=== PATIENT | female | born 1985 | race African-American/Black ===

== ENCOUNTER 2017-09-19 07:59 | Emergency (ER) | payer OTHER, SELFPAY ==
[2017-09-19 08:25] LABS: #Lymphocytes 1.4 thou/uL (1.20-3.40); #Monocytes 0.3 thou/uL (0.11-0.59); #Neutrophils 4.9 thou/uL (1.40-6.50); %Basophils 0.5 % (0.0-1.0); %Eosinophils 0.6 % (0.0-10.0); %Lymphocytes 20.9 % (21.0-51.0); %Monocytes 4.8 % (0.0-10.0); Hematocrit 34.3 % (36.0-47.0); Mean Platelet Volume 8.4 fL (7.4-10.4); Red Blood Cell (RBC) Count 3.92 mill/uL (4.20-5.40); White Blood Cell (WBC) Count 6.7 thou/uL (4.8-10.8)
[2017-09-19 08:48] LABS: ALT (SGPT) 29 U/L (8-55); AST (SGOT) 22 U/L (5-34); Alkaline Phosphatase 167 U/L (40-150); Anion Gap 10 mmol/L (10-20); BUN (Urea Nitrogen) 7 mg/dL (7.0-18.7); Bilirubin, Total 0.4 mg/dL (0.2-1.2); Calc. Creatinine Clearance 0 mL/min (70-130); Calcium 9.1 mg/dL (7.8-10.44); Carbon Dioxide 24 mmol/L (22-29); Chloride 106 mmol/L (98-107); Estimated GFR-MDRD Greater than 90; Globulin 3.8 g/dL (2.4-3.5); Protein, Total 7.7 g/dL (6.0-8.3)
[2017-09-19] MEDS ORDERED: levETIRAcetam In NaCl (Iso-Os) 1,500 MG in Premix Bag 1 BAG IVPB SCH ×2 (09:15)
--- NOTE | 2017-09-19 10:04 | CT ---
NONCONTRAST HEAD CT: History: Fall, seizure. Comparison: None. Technique: Noncontrast head CT is performed from skull base to skull vertex. FINDINGS: Small hematoma along the posterior left scalp region, near the vertex. No parenchymal hemorrhage. No extraaxial hematoma. No midline shift. Basilar cisterns are patent. Brain volume, age appropriate. Co rtical denton white matter differentiation is preserved. Ventricles are sulci are patent and symmetric. Adequate aeration of the sinuses and mastoid air cells. Calvarium is intact. IMPRESSION: 1. No intracranial post-traumatic sequellae. 2. Small posterior left scalp hematoma. POS: [facility]
== END 2017-09-19 11:06 | disposition home or self-care (01) ==
LOC: ERS 07:59
DX: G40.909 Epilepsy, unspecified, not intractable, without status epilepticus (principal); E11.9 Type 2 diabetes mellitus without complications; F17.210 Nicotine dependence, cigarettes, uncomplicated; Z79.84 Long term (current) use of oral hypoglycemic drugs; Z79.899 Other long term (current) drug therapy
CPT/HCPCS: 36415; 70450; 80053; 80185; 84146; 85025; 96365; J1953

== ENCOUNTER 2017-11-30 10:03 | Outpatient (CLI) | payer OTHER | END 2017-11-30 10:04 | disposition home or self-care (01) | LOC: BICULT 10:03 | PROVIDERS: ATTEND Family Medicine | DX: R10.32 Left lower quadrant pain (principal); R19.04 Left lower quadrant abdominal swelling, mass and lump; D25.9 Leiomyoma of uterus, unspecified | CPT/HCPCS: 76856; 93976 ==

== ENCOUNTER 2017-12-13 08:27 | Outpatient (CLI) | payer OTHER ==
[2017-12-13] MEDS ORDERED: ISOVUE-370 76%-LOCM 1 ML ONE (11:37)
== END 2017-12-13 08:28 | disposition home or self-care (01) ==
LOC: BICCT 08:27
PROVIDERS: ATTEND Family Medicine
DX: R19.04 Left lower quadrant abdominal swelling, mass and lump (principal); L98.9 Disorder of the skin and subcutaneous tissue, unspecified
CPT/HCPCS: 74177

== ENCOUNTER 2017-12-18 10:59 | Emergency (ER) | payer OTHER ==
[2017-12-18 11:53] LABS: Hemoglobin 11.3 g/dL (12.0-16.0); Mean Corpuscular HGB CONC 31.5 g/dL (32.0-36.0); Mean Corpuscular Hemoglobin 27.8 pg (27.0-31.0); Mean Corpuscular Volume 88.5 fl (81.0-99.0); Mean Platelet Volume 8.5 fL (7.4-10.4); Platelet Count 282 thou/uL (130-400); RBC Distribution Width 16.5 % (11.5-14.5); Red Blood Cell (RBC) Count 4.07 mill/uL (4.20-5.40); White Blood Cell (WBC) Count 3.9 thou/uL (4.8-10.8)
[2017-12-18 12:11] LABS: ALT (SGPT) 31 U/L (8-55); AST (SGOT) 23 U/L (5-34); Alkaline Phosphatase 159 U/L (40-150); Anion Gap 11 mmol/L (10-20); BUN (Urea Nitrogen) 7 mg/dL (7.0-18.7); Bilirubin, Total Less than 0.2 mg/dL (0.2-1.2); Calc. Creatinine Clearance 0 mL/min (70-130); Calcium 9.5 mg/dL (7.8-10.44); Carbon Dioxide 25 mmol/L (22-29); Chloride 105 mmol/L (98-107); Estimated GFR-MDRD Greater than 90; Globulin 3.7 g/dL (2.4-3.5); Glucose 119 mg/dL (70-105); Potassium 4.3 mmol/L (3.5-5.1); Protein, Total 7.7 g/dL (6.0-8.3); Sodium 137 mmol/L (136-145)
[2017-12-18 12:14] LABS: Anisocytosis SLIGHT = 6-15 cells (100X) (0-5/hpf); Band 1 % (5-11); Hypochromia SLIGHT = 6-15 cells (100X) (0-5/hpf); Lymphocytes 50 % (21-51); MDiff Complete? YES; Monocytes 5 % (0-10); Neutrophil 44 % (42-75); PLT Morphology Comment Appears Adequate
== END 2017-12-18 13:09 | disposition home or self-care (01) ==
LOC: ERS 10:59
DX: G40.909 Epilepsy, unspecified, not intractable, without status epilepticus (principal); E11.9 Type 2 diabetes mellitus without complications; F17.210 Nicotine dependence, cigarettes, uncomplicated; Z79.84 Long term (current) use of oral hypoglycemic drugs; Z79.899 Other long term (current) drug therapy
CPT/HCPCS: 36415; 80053; 80177; 80185; 84146; 85025; 99406

== ENCOUNTER 2018-01-30 08:32 | Outpatient (CLI) | payer OTHER ==
[~2018-01-30 08:32] MED LIST: Gadobenate Dimeglumine 529 MG/1 ML (20ML VIAL) ONE
--- NOTE | 2018-01-30 11:20 | MRI ---
MRI OF THE PELVIS WITHOUT AND WITH CONTRAST: Comparison: None. History: Endometriosis of the ovary. Palpable mass in the left lower quadrant of the abdominal wall. Technique: Multiplanar, multisequence MRI images were obtained of the pelvis without and with IV cont rast. FINDINGS: The uterus is normal in size. There is a fibroid along the right aspect of the uterus measuring 2.1 c m in greatest dimension. The junctional zone of the uterus is normal in thickness. The right ovary contains numerous small follicles. The left ovary also contains follicles. The domina nt follicle seen in the left ovary measuring 2.1 cm in greatest dimension. There is a small amount of free fluid in the pelvis which is likely physiologic. No suspicious pelvis mass is seen. None of the cystic structures in the pelvis demonstrates T2 shading which is often seen with endometriomas. In the abdominal ramsey of the left lower quadrant of the abdomen, there is a 3.5 cm mass. This demons trates low T1 and T2 signal with a very low ring around the mass which could represent hemosiderin de position. This mass is avidly enhancing. The posterior aspect of this mass touches the fascia overlyi ng the inferior aspect of the left rectus abdominus musculature. There is stranding change surroundin g this mass. No marrow signal abnormality is present. No pelvic adenopathy is appreciated. IMPRESSION: 1. There is a mass in the left lower quadrant of the abdomen which is nonspecific. This could represe nt an endometrioma. Alternatively, this could represent fibromatosis/implantation of a fibroid in a s ubcutaneous location if the patient has had a history of prior caesarian section or gynecologic surge ry. 2. Uterine fibroid. POS: [facility]
== END 2018-01-30 08:33 | disposition home or self-care (01) ==
LOC: MRI 08:32
PROVIDERS: ATTEND Obstetrics & Gynecology
DX: N80.1 Endometriosis of ovary (principal); R10.2 Pelvic and perineal pain; L90.5 Scar conditions and fibrosis of skin; R19.04 Left lower quadrant abdominal swelling, mass and lump; D25.9 Leiomyoma of uterus, unspecified
CPT/HCPCS: 72197; A9579

== ENCOUNTER 2018-02-01 12:24 | Emergency (ER) | payer OTHER ==
[2018-02-01 13:11] LABS: Hemoglobin 9.8 g/dL (12.0-16.0); Mean Corpuscular HGB CONC 31.4 g/dL (32.0-36.0); Mean Corpuscular Hemoglobin 27.6 pg (27.0-31.0); Mean Corpuscular Volume 87.8 fl (81.0-99.0); Platelet Count 262 thou/uL (130-400); RBC Distribution Width 14.8 % (11.5-14.5); Red Blood Cell (RBC) Count 3.57 mill/uL (4.20-5.40); White Blood Cell (WBC) Count 3.6 thou/uL (4.8-10.8)
[2018-02-01 13:41] LABS: ALT (SGPT) 13 U/L (8-55); AST (SGOT) 16 U/L (5-34); Albumin 3.9 g/dL (3.5-5.0); Alkaline Phosphatase 152 U/L (40-150); Anion Gap 12 mmol/L (10-20); BUN (Urea Nitrogen) 6 mg/dL (7.0-18.7); Bilirubin, Total 0.2 mg/dL (0.2-1.2); Calc. Creatinine Clearance 0 mL/min (70-130); Calcium 8.9 mg/dL (7.8-10.44); Carbon Dioxide 22 mmol/L (22-29); Chloride 104 mmol/L (98-107); Dilantin 7.6 ug/mL (10.0-20.0); Estimated GFR-MDRD Greater than 90; Globulin 3.3 g/dL (2.4-3.5); Glucose 83 mg/dL (70-105); Potassium 4.1 mmol/L (3.5-5.1); Protein, Total 7.2 g/dL (6.0-8.3); Sodium 134 mmol/L (136-145)
[2018-02-01 13:42] LABS: Bilirubin Small (Negative); Blood, Urine Negative (Negative); Clarity CLOUDY (Clear); Glucose, Urine (Dipstick) Negative (Negative); Leukocyte Moderate (Negative); Nitrite Negative (Negative); Protein, Urine (Dipstick) Negative (Neg-Trace); Specific Gravity, Urine 1.028 (1.002-1.036); pH, Urine 5.5 (5.0-9.0)
[2018-02-01 13:44] LABS: Pregnancy Test - Urine (BHCG) Negative (Negative); Pregu Control Background? CLEAR/WHITE (CLR/WHITE); Pregu Control Bar Appear? YES (CONTROL BAR); Specific Gravity 1.028 (1.002-1.036)
[2018-02-01 13:55] LABS: Anisocytosis SLIGHT = 6-15 cells (100X) (0-5/hpf); Band 3 % (5-11); Hypochromia SLIGHT = 6-15 cells (100X) (0-5/hpf); Lymphocytes 37 % (21-51); MDiff Complete? YES; Monocytes 6 % (0-10); Neutrophil 54 % (42-75); PLT Morphology Comment Appears Adequate
[2018-02-01 14:01] LABS: Bacteria/HPF None Seen HPF (None Seen); Hyaline Casts/LPF 7-10 HYALINE CAST LPF (0-3 Hyaline); Pathc Cast-AUWi Flag 1.16 (0-2.49); WBC/HPF 21-50 HPF (0-3)
[2018-02-01 14:03] LABS: Renal Epithelial None Seen HPF (0-3); Transitional Epithelial NONE SEEN HPF (0-3)
== END 2018-02-01 14:21 | disposition home or self-care (01) ==
LOC: ERS 12:24
DX: G40.909 Epilepsy, unspecified, not intractable, without status epilepticus (principal); E11.9 Type 2 diabetes mellitus without complications; F17.210 Nicotine dependence, cigarettes, uncomplicated; Z79.899 Other long term (current) drug therapy
CPT/HCPCS: 36415; 80053; 80177; 80185; 81003; 81015; 81025; 84146; 85025; 87086; 99406

== ENCOUNTER 2018-02-15 10:05 | Outpatient (CLI) | payer OTHER | END 2018-02-15 10:06 | disposition home or self-care (01) | LOC: LABBT 10:05 | PROVIDERS: ATTEND Obstetrics & Gynecology | DX: Z01.812 Encounter for preprocedural laboratory examination (principal); R19.09 Other intra-abdominal and pelvic swelling, mass and lump; N80.0 Endometriosis of uterus ==

== ENCOUNTER 2018-02-15 10:35 | Emergency (ER) | payer OTHER ==
[2018-02-15] MEDS ORDERED: levETIRAcetam In NaCl (Iso-Os) 1,000 MG in Premix Bag 1 BAG IVPB SCH (12:00)
== END 2018-02-15 13:07 | disposition home or self-care (01) ==
LOC: ERS 10:35
DX: G40.909 Epilepsy, unspecified, not intractable, without status epilepticus (principal); E11.9 Type 2 diabetes mellitus without complications; Z79.899 Other long term (current) drug therapy
CPT/HCPCS: 36415; 36416; 80177; 96365; J1953

== ENCOUNTER 2018-02-19 09:04 | Outpatient (CLI) | payer OTHER ==
[2018-02-19 10:05] LABS: BHCG - Serum Negative (NEGATIVE); Pregs Control Bar Appear? YES (CONTROL BAR)
[2018-02-19 10:06] LABS: Pregs Control Background? CLEAR/WHITE (CLR/WHITE)
[2018-02-19 10:07] LABS: Hemoglobin 10.3 g/dL (12.0-16.0); Mean Corpuscular HGB CONC 31.9 g/dL (32.0-36.0); Mean Corpuscular Hemoglobin 27.7 pg (27.0-31.0); Mean Corpuscular Volume 86.7 fl (81.0-99.0); Mean Platelet Volume 8.1 fL (7.4-10.4); Platelet Count 304 thou/uL (130-400); RBC Distribution Width 14.5 % (11.5-14.5); Red Blood Cell (RBC) Count 3.74 mill/uL (4.20-5.40); White Blood Cell (WBC) Count 3.4 thou/uL (4.8-10.8)
== END 2018-02-19 09:05 | disposition home or self-care (01) ==
LOC: LABBT 09:04
PROVIDERS: ATTEND Obstetrics & Gynecology
DX: Z01.812 Encounter for preprocedural laboratory examination (principal); N80.6 Endometriosis in cutaneous scar
CPT/HCPCS: 84703; 85027; 86850; 86900; 86901

== ENCOUNTER 2018-02-21 05:54 | Day surgery (SDC) | payer OTHER ==
[2018-02-19 09:19] VITALS: BMI 31.9
--- NOTE | 2018-02-20 23:32 | HP ---
DATE OF ADMISSION: 02/21/2018 REASON FOR ADMISSION: Left abdominal wall mass. SCHEDULED PROCEDURE: Excision of left abdominal wall endometrioma. HISTORY OF PRESENT ILLNESS: Ms. Lisa is a 33-year-old status post x1, who has pre sentation of abdominal wall mass post-C section. CT and MRI were consistent with suprafascial endome trioma with painful nature. OB AND PATTERN FITTER HISTORY: x1, x1. No history of dysplasia. PAST MEDICAL HISTORY: Significant for pseudoseizures. PAST SURGICAL HISTORY: . ALLERGIES: MORPHINE and PENICILLIN. MEDICATIONS: Levetiracetam 500 mg tablets and phenytoin. SOCIAL HISTORY: Tobacco use. Denies alcohol or IV drug abuse. FAMILY HISTORY: Noncontributory. REVIEW OF SYSTEMS: Noncontributory. PHYSICAL EXAMINATION: GENERAL: White female. VITAL SIGNS: 5 feet 4 inches, 181 pounds, BMI 31, 104/76 blood pressure. HEENT: Within normal limits. LUNGS: Clear to auscultation bilaterally. HEART: Regular rate and rhythm. ABDOMEN: Soft. Abdominal mass noted approximately 3-4 cm on the left side of Pfannenstiel incision. PELVIC: Vulva without lesions. Vagina without discharge. Cervix parous. Uterus anteverted, 4-week size. Adnexa, no masses bilaterally. EXTREMITIES: Without clubbing, cyanosis, or edema. MRI reveals a 3.5 cm mass with low T1 and T2 sig nals with low ring around the mass representing hemosiderin enhancing mass posterior aspect touches t he fascia consistent with endometrioma, fibromatosis, or fibroid. IMPRESSION: Likely endometriosis of the anterior abdominal wall, status post . PLAN: Exploration and excision of abdominal wall mass. We will administer appropriate antibiotic an d DVT prophylaxis.
[2018-02-21] MEDS ORDERED: Bupivacaine HCl 0.5%/Epinephrine 1:200,000/PF 30 ml Vial ONE (06:41)
[2018-02-21] MEDS ORDERED: Levofloxacin 500 mg/D5W 100 ml Premix Bag ONE (07:17)
[2018-02-21] MEDS ORDERED: Midazolam HCl 2 mg/2 ml Vial ONE (07:24)
[2018-02-21] MEDS ORDERED: Fentanyl 100 MCG/2 ML VIAL ONE (07:24)
[2018-02-21] MEDS ORDERED: HYDROcodone/Acetaminophen 5/325 mg Tablet ONE (10:09)
--- NOTE | 2018-02-21 10:31 | OP ---
DATE OF PROCEDURE: 02/21/2018 PREOPERATIVE DIAGNOSIS: Left anterior abdominal wall mass, suspect endometrioma versus leiomyoma. POSTOPERATIVE DIAGNOSIS: Left anterior abdominal wall leiomyoma, approximately 3 cm greatest diamete r. PROCEDURE: Excision of left anterior abdominal wall leiomyoma. SURGEON: Pablo Bird M.D. ANESTHESIA: General endotracheal. ESTIMATED BLOOD LOSS: Less than 10 mL. COMPLICATIONS: None. DRAINS: None. MEDICATIONS: 500 Levaquin preoperatively. SPECIMENS REMOVED: Left anterior abdominal wall mass. OPERATIVE FINDINGS: 1. Left anterior abdominal wall mass just superior to and adherent to the fascia at the left margin of previous Pfannenstiel incision. 2. Complete excision of aforementioned mass. 3. Hemostasis, needle counts correct at the end of the procedure. DISPOSITION: To the recovery room in good condition. DESCRIPTION OF OPERATIVE PROCEDURE: After obtaining proper informed consent, the patient was taken t o the operating room where general endotracheal anesthesia was achieved without difficulty. The neeraj ent was prepped and draped in the usual manner. The mass was identified on palpation and the area ar ound it infiltrated with approximately 25 mL of 0.5% Marcaine with epinephrine. Skin incision was ca rried through the previous Pfannenstiel incision for approximately 5 cm. This was inferior to the le river of the mass, but the patient's abdominal skin and subcutaneous tissue was lax enough and this was close enough in approximation to the area of concern that it was easy to dissect back to it. Blunt and sharp dissection was carried through the subcutaneous adipose tissue back to the level of the mas s. The mass was grasped and blunt and sharp dissection was carried around it. The bottom 25-30% of it was adherent to the fascia and it was dissected off of the fascia removing partial thickness of th e fascia at this level over an area of approximately 2 cm. Specimen was excised and sent for [facility] pathology. Suction irrigation was carried out. The level of defects in the fascia was identified and this area was reapproximated using a running continuous 0 PDS suture. The subcutaneous tissue w as irrigated and rendered hemostatic with Bovie cautery and reapproximated using a 3-0 plain gut and then the skin was reapproximated using a subcuticular stitch of 4-0 Monocryl and Dermabond. The neeraj ent was awakened, extubated, and taken to the recovery room in good condition.
[2018-02-21] MEDS ORDERED: Dexamethasone 20 MG/5 ML VIAL ONE (14:59)
[2018-02-21] MEDS ORDERED: Lidocaine 1% PF 5 ML VIAL ONE (14:59)
[2018-02-21] MEDS ORDERED: Glycopyrrolate 0.2 MG/ML 5 ML SYRINGE ONE (14:59)
[2018-02-21] MEDS ORDERED: PROPOFOL 200 MG/20 ML VIAL ONE (14:59)
== END 2018-02-21 10:35 | disposition home or self-care (01) ==
LOC: SDC 05:54
PROVIDERS: ATTEND Obstetrics & Gynecology
PROC: 0JB80ZZ Excision of Abdomen Subcutaneous Tissue and Fascia, Open Approach (ICD-10-PCS; principal; 2018-02-21)
DX: N80.8 Other endometriosis (principal); G40.89 Other seizures; Z88.0 Allergy status to penicillin; Z88.5 Allergy status to narcotic agent; Z79.899 Other long term (current) drug therapy
CPT/HCPCS: 36416; 88305; J0670; J1100; J1956; J2001; J2250; J2704; J3010

== ENCOUNTER 2018-10-18 11:37 | Emergency (ER) | payer OTHER, SELFPAY ==
[2018-10-18 12:43] LABS: #Eosinphils 0.2 thou/uL (0.0-0.7); #Lymphocytes 1.3 thou/uL (1.20-3.40); #Monocytes 0.3 thou/uL (0.11-0.59); #Neutrophils 2.9 thou/uL (1.40-6.50); %Basophils 0.4 % (0.0-1.0); %Eosinophils 3.7 % (0.0-10.0); %Lymphocytes 27.3 % (21.0-51.0); %Monocytes 6.1 % (0.0-10.0); %Neutrophils 62.5 % (42.0-75.0); Hemoglobin 10.8 g/dL (12.0-16.0); Mean Corpuscular HGB CONC 31.5 g/dL (32.0-36.0); Mean Corpuscular Hemoglobin 25.2 pg (27.0-31.0); Mean Corpuscular Volume 79.9 fL (78.0-98.0); Mean Platelet Volume 8.5 fL (7.4-10.4); Platelet Count 343 thou/uL (130-400); RBC Distribution Width 15.2 % (11.5-14.5); White Blood Cell (WBC) Count 4.6 thou/uL (4.8-10.8)
[2018-10-18 13:02] LABS: BHCG - Serum Negative (NEGATIVE); Pregs Control Background? CLEAR/WHITE (CLR/WHITE); Pregs Control Bar Appear? YES (CONTROL BAR)
[2018-10-18 13:10] LABS: ALT (SGPT) 11 U/L (8-55); AST (SGOT) 12 U/L (5-34); Albumin 3.8 g/dL (3.5-5.0); Alkaline Phosphatase 93 U/L (40-150); Anion Gap 10 mmol/L (10-20); BUN (Urea Nitrogen) 9 mg/dL (7.0-18.7); Bilirubin, Total 0.2 mg/dL (0.2-1.2); Calc. Creatinine Clearance 0 mL/min (70-130); Calcium 9.1 mg/dL (7.8-10.44); Carbon Dioxide 23 mmol/L (22-29); Chloride 104 mmol/L (98-107); Estimated GFR-MDRD Greater than 90; Globulin 3.6 g/dL (2.4-3.5); Glucose 138 mg/dL (70-105); Potassium 4.2 mmol/L (3.5-5.1); Protein, Total 7.4 g/dL (6.0-8.3); Sodium 133 mmol/L (136-145)
--- NOTE | 2018-10-20 17:58 | EKG ---
Test Reason : SEIZURE Blood Pressure : / mmHG Vent. Rate : 074 BPM Atrial Rate : 074 BPM P-R Int : 154 ms QRS Dur : 098 ms QT Int : 396 ms P-R-T Axes : 040 044 033 degrees QTc Int : 439 ms Normal sinus rhythm Normal ECG Confirmed by JUAN GREENFIELD DO ([id number]), newspaper photo editor JITENDRA ALCOCER ([id number]) on 10/20/2018 5:58:02 PM Referred By: GIN Confirmed By:JUAN GREENFIELD DO
== END 2018-10-18 14:20 | disposition home or self-care (01) ==
LOC: ERS 11:37
DX: R56.9 Unspecified convulsions (principal); E11.9 Type 2 diabetes mellitus without complications; F43.10 Post-traumatic stress disorder, unspecified; F17.210 Nicotine dependence, cigarettes, uncomplicated; Z79.84 Long term (current) use of oral hypoglycemic drugs
CPT/HCPCS: 36415; 80053; 84484; 84703; 85025; 93005

== ENCOUNTER 2019-01-08 14:30 | Emergency (ER) | payer SELFPAY ==
[2019-01-08 15:12] LABS: #Basophils 0.1 thou/uL (0.0-0.2); #Eosinphils 0.1 thou/uL (0.0-0.7); #Lymphocytes 1.7 thou/uL (1.20-3.40); #Monocytes 0.4 thou/uL (0.11-0.59); #Neutrophils 4.1 thou/uL (1.40-6.50); %Basophils 1.1 % (0.0-1.0); %Eosinophils 0.8 % (0.0-10.0); %Lymphocytes 26.9 % (21.0-51.0); %Monocytes 6.8 % (0.0-10.0); %Neutrophils 64.3 % (42.0-75.0); Hemoglobin 9.4 g/dL (12.0-16.0); Mean Corpuscular HGB CONC 30.4 g/dL (32.0-36.0); Mean Corpuscular Hemoglobin 24.6 pg (27.0-31.0); Mean Corpuscular Volume 80.9 fL (78.0-98.0); Mean Platelet Volume 8.5 fL (7.4-10.4); Platelet Count 301 thou/uL (130-400); White Blood Cell (WBC) Count 6.4 thou/uL (4.8-10.8)
[2019-01-08 15:23] LABS: ALT (SGPT) 13 U/L (8-55); AST (SGOT) 14 U/L (5-34); Albumin 3.8 g/dL (3.5-5.0); Alkaline Phosphatase 93 U/L (40-150); Anion Gap 8 mmol/L (10-20); BUN (Urea Nitrogen) 10 mg/dL (7.0-18.7); Bilirubin, Total Less than 0.2 mg/dL (0.2-1.2); Calc. Creatinine Clearance 0 mL/min (70-130); Calcium 9.1 mg/dL (7.8-10.44); Carbon Dioxide 28 mmol/L (22-29); Chloride 108 mmol/L (98-107); Estimated GFR-MDRD 86; Glucose 109 mg/dL (70-105); Protein, Total 6.8 g/dL (6.0-8.3); Sodium 139 mmol/L (136-145)
--- NOTE | 2019-01-08 16:00 | CT ---
HEAD CT WITHOUT CONTRAST 01/08/19 HISTORY: Syncope. Two episodes of seizure today. COMPARISON: 09/19/17. FINDINGS: No parenchymal hemorrhage. No extra-axial hematoma. No midline shift. Basilar cisterns are patent. Br ain volume, age appropriate. Cortical denton-white matter differentiation is preserved. Ventricles and sulci are patent and symmetric. Calvarium is intact. Adequate aeration of the sinuses and mastoid air cells. IMPRESSION: No acute intracranial process. POS: [facility]
== END 2019-01-08 15:40 | disposition home or self-care (01) ==
LOC: ERS 14:30
DX: R56.9 Unspecified convulsions (principal); F17.210 Nicotine dependence, cigarettes, uncomplicated; F43.10 Post-traumatic stress disorder, unspecified; Z79.84 Long term (current) use of oral hypoglycemic drugs
CPT/HCPCS: 36415; 70450; 80053; 85025

== ENCOUNTER 2019-09-26 19:20 | Emergency (ER) | payer SELFPAY ==
[2019-09-26 20:43] LABS: Hemoglobin 9.2 g/dL (12.0-16.0); Mean Corpuscular HGB CONC 29.4 g/dL (32.0-36.0); Mean Corpuscular Hemoglobin 21.2 pg (27.0-31.0); Mean Corpuscular Volume 72.2 fL (78.0-98.0); Mean Platelet Volume 8.7 fL (7.4-10.4); Platelet Count 392 thou/uL (130-400); RBC Distribution Width 15.3 % (11.5-14.5); Red Blood Cell (RBC) Count 4.36 mill/uL (4.20-5.40); White Blood Cell (WBC) Count 6.8 thou/uL (4.8-10.8)
[2019-09-26 20:55] LABS: Bacteria/HPF None Seen HPF (None Seen); Bilirubin Negative (Negative); Blood, Urine Negative (Negative); Clarity Clear (Clear); Glucose, Urine (Dipstick) Normal (Negative); Leukocyte 250 Leu/uL (Negative); Nitrite Negative (Negative); Protein, Urine (Dipstick) 10 mg/dL (Neg-Trace); Urobilinogen Normal mg/dL (Less than 2); WBC/HPF 21-50 HPF (0-3)
[2019-09-26 20:57] LABS: Pregnancy Test - Urine (BHCG) Negative (Negative); Pregu Control Background? CLEAR/WHITE (CLR/WHITE); Pregu Control Bar Appear? YES (CONTROL BAR); Specific Gravity 1.025 (1.002-1.036)
[2019-09-26 21:01] LABS: ALT (SGPT) 8 U/L (8-55); AST (SGOT) 12 U/L (5-34); Albumin 4.2 g/dL (3.5-5.0); Alkaline Phosphatase 105 U/L (40-110); Anion Gap 14 mmol/L (10-20); BUN (Urea Nitrogen) 7 mg/dL (7.0-18.7); Bilirubin, Total 0.3 mg/dL (0.2-1.2); Calc. Creatinine Clearance 0 mL/min (70-130); Calcium 9.6 mg/dL (7.8-10.44); Carbon Dioxide 20 mmol/L (22-29); Chloride 107 mmol/L (98-107); Estimated GFR-MDRD Greater than 90; Globulin 3.9 g/dL (2.4-3.5); Glucose 123 mg/dL (70-105); Potassium 4.3 mmol/L (3.5-5.1); Protein, Total 8.1 g/dL (6.0-8.3); Sodium 137 mmol/L (136-145)
[2019-09-26 21:02] LABS: #Basophils 0.1 thou/uL (0.0-0.2); #Lymphocytes 1.9 thou/uL (1.20-3.40); #Monocytes 0.4 thou/uL (0.11-0.59); #Neutrophils 4.4 thou/uL (1.40-6.50); %Basophils 0.9 % (0.0-1.0); %Eosinophils 0.4 % (0.0-10.0); %Lymphocytes 27.3 % (21.0-51.0); %Monocytes 6.3 % (0.0-10.0); %Neutrophils 65.1 % (42.0-75.0); Hypochromia SLIGHT = 6-15 cells (100X) (0-5/hpf); MDiff Complete? YES; Microcytosis SLIGHT = 6-15 cells (100X) (0-5/hpf); Target Cells SLIGHT = 2-5 cells (100X) (0-1/hpf)
== END 2019-09-26 22:53 | disposition home or self-care (01) ==
LOC: ERS 19:20
DX: G40.909 Epilepsy, unspecified, not intractable, without status epilepticus (principal); E11.9 Type 2 diabetes mellitus without complications; F43.10 Post-traumatic stress disorder, unspecified; F17.210 Nicotine dependence, cigarettes, uncomplicated; Z79.84 Long term (current) use of oral hypoglycemic drugs
CPT/HCPCS: 36415; 80053; 80185; 81003; 81015; 81025; 84146; 85025; 99284

== ENCOUNTER 2023-09-29 18:21 | Emergency (ER) | payer SELFPAY | END 2023-09-29 19:11 | disposition home or self-care (01) | LOC: ERS 18:21 | DX: K08.89 Other specified disorders of teeth and supporting structures (principal); E11.9 Type 2 diabetes mellitus without complications; F17.210 Nicotine dependence, cigarettes, uncomplicated | CPT/HCPCS: 99283 ==